=== PATIENT | male | born 1955 | race Asian ===

== ENCOUNTER → 2017-11-21 | Day surgery (SDC) | payer OTHER ==
[~2017-11-21] MED LIST: ASPIR 8181 MG PO; DIOVAN80 MG PO; FENTANYL CITRATE/PF 100MCG/2 ML INJ ONE; FISH OIL 1,0001 EAC2 PO; HYOSCYAMINE SULFATE 0.5 MG/ML AMP ONE; LIDOCAINE HCL 2% LOCAL INJ 5 ML SDV VIAL INJ ONE; MIDAZOLAM HCL 2 MG/2 ML VIAL ONE; MULTI-VITAMIN1 EACH PO; PANTOPRAZOLE SO40 MG PO; PROPOFOL IV EMULSION 10 MG/ML 50 ML VIAL ONE; SIMVASTATIN20 MG PO
== END | disposition home or self-care (01) ==
LOC: ENDO 14:38
PROVIDERS: ATTEND Internal Medicine Gastroenterology
DX: Z12.11 Encounter for screening for malignant neoplasm of colon (principal); D12.4 Benign neoplasm of descending colon; K29.70 Gastritis, unspecified, without bleeding; K22.2 Esophageal obstruction; K22.8 Other specified diseases of esophagus; K21.9 Gastro-esophageal reflux disease without esophagitis; K44.9 Diaphragmatic hernia without obstruction or gangrene; I10 Essential (primary) hypertension; K64.8 Other hemorrhoids; E78.00 Pure hypercholesterolemia, unspecified; Z79.82 Long term (current) use of aspirin
CPT/HCPCS: 43239; 43450; 45384; J1980; J2001; J2250

== ENCOUNTER → 2021-02-06 | Day surgery (SDC) | payer MEDICARE, OTHER ==
[2021-02-05 09:43] LABS: BASOPHILS # (AUTO) 0.1 (0.0-0.1); BASOPHILS % 0.8 % (0.0-1.0); EOSINOPHILS # (AUTO) 0.2 (0.0-0.4); EOSINOPHILS % 2.3 % (0.0-6.0); HEMATOCRIT 41.4 % (38.2-49.6); HEMOGLOBIN 14.1 g/dL (14.0-18.0); LYMPHOCYTES # (AUTO) 1.8 (1.0-3.2); LYMPHOCYTES % 25.6 % (18.0-39.1); MEAN CORPUSCULAR HEMOGLOBIN 30.3 pg (28-32); MEAN CORPUSCULAR HGB CONC 34.1 g/dL (31-35); MONOCYTES # (AUTO) 0.7 (0.2-0.8); MONOCYTES % 9.8 % (4.4-11.3); NEUTROPHILS # (AUTO) 4.3 (2.1-6.9); NEUTROPHILS % 61.1 % (38.7-80.0); PLATELET COUNT 253 x10e3/uL (140-360); RED BLOOD COUNT 4.65 x10e6/uL (4.3-5.7); RED CELL DISTRIBUTION WIDTH 13.2 % (11.7-14.4)
[~2021-02-06] MED LIST changes: +ACTOS15 MG PO; -FENTANYL CITRATE/PF 100MCG/2 ML INJ ONE; +GLIMEPIRIDE2 MG PO; -HYOSCYAMINE SULFATE 0.5 MG/ML AMP ONE; -LIDOCAINE HCL 2% LOCAL INJ 5 ML SDV VIAL INJ ONE; +LOSARTAN POTAS100 MG PO; -MIDAZOLAM HCL 2 MG/2 ML VIAL ONE; -PROPOFOL IV EMULSION 10 MG/ML 50 ML VIAL ONE; +TENORMIN100 MG PO; +TRIAMTERENE-HCTZ1 EA PO; +TYLENOL EXTRA500 MG PO
[2021-02-06 13:52] VITALS: BP 120/76
== END | disposition home or self-care (01) ==
LOC: OR 09:33
PROVIDERS: ATTEND Internal Medicine Gastroenterology
DX: Z09 Encounter for follow-up examination after completed treatment for conditions other than malignant neoplasm (principal); D12.5 Benign neoplasm of sigmoid colon; K64.8 Other hemorrhoids; I10 Essential (primary) hypertension; E78.00 Pure hypercholesterolemia, unspecified; E11.9 Type 2 diabetes mellitus without complications; R00.1 Bradycardia, unspecified; Z72.0 Tobacco use; Z01.810 Encounter for preprocedural cardiovascular examination; Z01.812 Encounter for preprocedural laboratory examination; Z20.822 Contact with and (suspected) exposure to COVID-19; Z79.84 Long term (current) use of oral hypoglycemic drugs; Z79.82 Long term (current) use of aspirin; Z68.28 Body mass index [BMI] 28.0-28.9, adult
CPT/HCPCS: 36415 ×2; 45384; 45385; 82948; 85025; 93005; U0002; 45378